=== PATIENT | female | born 1945 | race Caucasian/White ===

== ENCOUNTER → 2020-03-13 10:39 | Outpatient (CLI) | payer MEDICARE, OTHER | END | disposition home or self-care (01) | LOC: D.LAB 10:39 | PROVIDERS: ATTEND Internal Medicine Gastroenterology | DX: K29.40 Chronic atrophic gastritis without bleeding (principal); K22.70 Barrett's esophagus without dysplasia ==

== ENCOUNTER → 2020-12-17 08:13 | Outpatient (CLI) | payer MEDICARE, OTHER ==
[2020-12-17 08:40] LABS: CREATININE - SERUM 0.5 mg/dL (0.6-1.3)
== END | disposition home or self-care (01) ==
LOC: D.CT 08:13
PROVIDERS: ATTEND Internal Medicine Gastroenterology
DX: R14.2 Eructation (principal); Z80.0 Family history of malignant neoplasm of digestive organs; Z86.010 Personal history of colon polyps; K57.30 Diverticulosis of large intestine without perforation or abscess without bleeding; K29.00 Acute gastritis without bleeding; R10.819 Abdominal tenderness, unspecified site

== ENCOUNTER → 2021-01-19 09:03 | Outpatient (CLI) | payer MEDICARE, OTHER | END | disposition home or self-care (01) | LOC: D.NM 09:03 | PROVIDERS: ATTEND Internal Medicine Gastroenterology | DX: R10.11 Right upper quadrant pain (principal); R68.81 Early satiety; R14.2 Eructation ==